=== PATIENT | male | born 1950 | race Caucasian/White ===

== ENCOUNTER 2017-05-02 17:58 | Emergency (ER) | payer MEDICARE, OTHER ==
--- NOTE | 2017-05-02 18:07 | ED Physician Chart ---
Chief Complaint/HPI - Patient Information Date Seen:: 05/02/17 Time Seen:: 18:02 Chief Complaint:: elevated blood sugar History of Present Illness:: 67-year-old male history of diabetes mellitus type 2 complaints of acute, constant, severe, elevated blood sugar that he noticed about one hour prior to arrival when he checked his blood sugar was 462. Says he had some associated generalized body cramping. Says he was working outside all day and was sweating profusely and did not drink enough water. Denies nausea, vomiting, headache, acute vision changes, numbness, tingling, abdominal pain, chest pain. Historian:: Patient Review:: Nurse's Note Reviewed Review of Systems - Review of Systems Other: Complete system review otherwise unremarkable except as noted in history of present illness. Past Medical History - Past Medical History Past Medical History: HTN, DM Family History: None Social History: Non Smoker, No Alcohol, No Drug Use Surgical History: None Psychiatricy History: None Medication: None Family Medical History - Family Member Mother History Unknown: Yes Ethnicity: Physical Exam - Physical Examination Other:: INITIAL VITAL SIGNS: Reviewed by me GENERAL: Alert and interactive. No acute distress HEAD: Head is normocephalic and atraumatic EYES: EOMI. PERRL. No scleral icterus. No conjunctival injection ENT: Moist mucous membranes. NECK: Supple. No masses. Full range of motion RESPIRATORY: No tachypnea. Clear breath sounds bilaterally. No wheezing, rales, or rhonchi CV: Regular rate and rhythm. No murmurs, rubs, or gallops ABDOMEN: Soft, non-distended, non-tender. No guarding. No rebound. No masses. EXTREMITIES: No deformity. No cyanosis. No edema. SKIN: Warm and dry. No obvious rashes. NEUROLOGIC: Alert and oriented. Face is symmetric. Speech is normal. Moves all extremities equally. Motor and sensory distally intact. Labs/Radiology/EKG Results - Lab Results Results: Lab Results 05/02/17 05/02/17 05/02/17 Range/Units 17:00 18:24 18:24 WBC 12.9 H (4.8-10.8) Th/cmm RBC 5.07 (3.80-5.80) Mil/cmm Hgb 15.3 (12.6-17.4) gm/dL Hct 45.5 (39.0-49.0) % MCV 89.8 (80-99) fl MCH 30.1 (27.0-31.0) pg MCHC Differential 33.6 (28.0-36.0) pg RDW 12.9 (11.5-20.0) % Plt Count 179 (150-400) Th/cmm MPV 10.1 fl Neutrophils (Manual) 89 H (40-80) % Lymphocytes 9 L (20-50) % Monocytes 2 (2-10) % Platelet Estimate ADEQUATE (NORMAL) Sodium 128 L (136-145) mEq/L Potassium 4.1 (3.5-5.1) mEq/L Chloride 94 L (98-107) mEq/L Carbon Dioxide 25.9 (21.0-31.0) mEq/L Anion Gap 12.2 (7.0-16.0) BUN 24 (7-25) mg/dL Creatinine 2.4 H (0.7-1.3) mg/dL Est GFR ( Amer) 34.9 (>90) ml/min Est GFR (Non-Af Amer) 28.8 ml/min BUN/Creatinine Ratio 10.0 Glucose 243 H (70-105) mg/dL Hemoglobin A1c % (4.0-6.0) % Whole Bld Lactic Acid (0.60-1.99) mmol/L Calcium 10.9 H (8.6-10.3) mg/dL Total Bilirubin 0.8 (0.3-1.0) mg/dL AST 27 (13-39) U/L ALT 21 (7-52) U/L Alkaline Phosphatase 70 (34-104) U/L Total Protein 8.2 (6.0-8.3) gm/dL Albumin 5.0 (4.2-5.5) gm/dL Globulin 3.2 gm/dL Albumin/Globulin Ratio 1.6 (1.0-1.8) Urine Source CLEAN C Urine Color DARK YELLOW Urine Clarity SLIGHT HAZY (CLEAR) Urine pH 5.0 Ur Specific [place] 1.025 (1.005-1.030) Urine Protein 100 H (NEGATIVE) mg/dL Urine Glucose (UA) NEGATIVE (NEGATIVE) mg/dL Urine Ketones 15 H (NEGATIVE) mg/dL Urine Blood NEGATIVE (NEGATIVE) Urine Nitrate NEGATIVE (NEGATIVE) Urine Bilirubin SMALL H (NEGATIVE) Urine Urobilinogen 0.2 (0.2 - 1.0) E.U./dL Ur Leukocyte Esterase TRACE H (NEGATIVE) Urine RBC 0-1 (0-5) /hpf Urine WBC 2-5 H (0-5) /hpf Ur Epithelial Cells OCCASIONAL (FEW) /lpf Amorphous Sediment FEW URATES (NONE SEEN) Urine Bacteria MANY (NONE SEEN) /hpf Hyaline Casts 2-5 H (0-2) /lpf Serum Ketones NEGATIVE (NEGATIVE) 05/02/17 05/02/17 Range/Units 18:24 18:24 WBC (4.8-10.8) Th/cmm RBC (3.80-5.80) Mil/cmm Hgb (12.6-17.4) gm/dL Hct (39.0-49.0) % MCV (80-99) fl MCH (27.0-31.0) pg MCHC Differential (28.0-36.0) pg RDW (11.5-20.0) % Plt Count (150-400) Th/cmm MPV fl Neutrophils (Manual) (40-80) % Lymphocytes (20-50) % Monocytes (2-10) % Platelet Estimate (NORMAL) Sodium (136-145) mEq/L Potassium (3.5-5.1) mEq/L Chloride (98-107) mEq/L Carbon Dioxide (21.0-31.0) mEq/L Anion Gap (7.0-16.0) BUN (7-25) mg/dL Creatinine (0.7-1.3) mg/dL Est GFR ( Amer) (>90) ml/min Est GFR (Non-Af Amer) ml/min BUN/Creatinine Ratio Glucose (70-105) mg/dL Hemoglobin A1c % 6.5 H (4.0-6.0) % Whole Bld Lactic Acid 3.51 H* (0.60-1.99) mmol/L Calcium (8.6-10.3) mg/dL Total Bilirubin (0.3-1.0) mg/dL AST (13-39) U/L ALT (7-52) U/L Alkaline Phosphatase (34-104) U/L Total Protein (6.0-8.3) gm/dL Albumin (4.2-5.5) gm/dL Globulin gm/dL Albumin/Globulin Ratio (1.0-1.8) Urine Source Urine Color Urine Clarity (CLEAR) Urine pH Ur Specific [place] (1.005-1.030) Urine Protein (NEGATIVE) mg/dL Urine Glucose (UA) (NEGATIVE) mg/dL Urine Ketones (NEGATIVE) mg/dL Urine Blood (NEGATIVE) Urine Nitrate (NEGATIVE) Urine Bilirubin (NEGATIVE) Urine Urobilinogen (0.2 - 1.0) E.U./dL Ur Leukocyte Esterase (NEGATIVE) Urine RBC (0-5) /hpf Urine WBC (0-5) /hpf Ur Epithelial Cells (FEW) /lpf Amorphous Sediment (NONE SEEN) Urine Bacteria (NONE SEEN) /hpf Hyaline Casts (0-2) /lpf Serum Ketones (NEGATIVE) ED Septic Shock - . Is Septic Shock (SBP<90, OR Lactate>4 mmol\L) present?: No Reassessment (Disposition) - Reassessment Reassessment:: Patient's blood sugar on arrival was about 260. Says he had a blood sugar reading of 460 range at home prior to arrival. Has been working outside all day long sweating. Labs indicate leukocytosis, elevated lactic acid level and acute kidney injury. There is no apparent infection. Patient feels much improved after receiving IV hydration. We did give IV normal saline 2000 mL. Recommending admission for observation and further hydration however patient says that he wishes to leave and go home tonight. He is leaving AMA. Reassessment Condition:: Improved - Diagnosis Diagnosis:: Acute leukocytosis Acute elevated lactic acid Acute kidney injury due to acute dehydration Acute hyperglycemia Acute body cramps Diabetes mellitus type 2 - Aftercare/Follow up Instructions Aftercare/Follow-Up Instructions:: Counseled pt regarding lab results/diagnosis & need follow up, Refer to Discharge Instructions - Patient Disposition Discharge/Transfer:: Home Time:: 19:48 Condition at Disposition:: Improved ED Discharge Plan - Patient Disposition Condition at Disposition: Improved Instructions: Hyperglycemia, Dehydration, Adult, [id number]
[2017-05-02] MEDS ORDERED: Sodium Chloride 0.9% 1,000 ML IV ONE ×2 (18:10→19:01)
[2017-05-02 18:31] LABS: HEMATOCRIT 45.5 % (39.0-49.0); HEMOGLOBIN 15.3 gm/dL (12.6-17.4); MEAN CELL VOLUME 89.8 fl (80-99); MEAN CORPUSCULAR HEMOGLOBIN 30.1 pg (27.0-31.0); MEAN CORPUSCULAR HGB CONC 33.6 pg (28.0-36.0); MEAN PLATELET VOLUME 10.1 fl; PLATELET COUNT 179 Th/cmm (150-400); RED BLOOD COUNT 5.07 Mil/cmm (3.80-5.80); RED CELL DISTRIBUTION WIDTH 12.9 % (11.5-20.0)
[2017-05-02 18:38] LABS: WHITE BLOOD COUNT 12.9 Th/cmm (4.8-10.8)
[2017-05-02 18:48] LABS: ALB/GLOB RATIO 1.6 (1.0-1.8); ALKALINE PHOSPHATASE 70 U/L (34-104); ANION GAP 12.2 (7.0-16.0); BILIRUBIN,TOTAL 0.8 mg/dL (0.3-1.0); BUN - UREA NITROGEN 24 mg/dL (7-25); CALCIUM SERUM 10.9 mg/dL (8.6-10.3); CARBON DIOXIDE 25.9 mEq/L (21.0-31.0); CHLORIDE 94 mEq/L (98-107); CREATININE - SERUM 2.4 mg/dL (0.7-1.3); GLUCOSE 243 mg/dL (70-105); POTASSIUM SERUM 4.1 mEq/L (3.5-5.1); SGOT 27 U/L (13-39); SGPT/ALT 21 U/L (7-52); SODIUM SERUM 128 mEq/L (136-145)
[2017-05-02 18:51] LABS: NEUTROPHILS 89 % (40-80); PLATELET ESTIMATE ADEQUATE (NORMAL); TOTAL CELLS COUNTED 100
[2017-05-02] MEDS ORDERED: cefTRIAXone 1 GM in Sodium Chloride 0.9% 50 ML IV ONE (19:01)
[2017-05-02 19:28] LABS: URINE BILIRUBIN SMALL (NEGATIVE); URINE BLOOD NEGATIVE (NEGATIVE); URINE COLOR DARK YELLOW; URINE GLUCOSE (UA) NEGATIVE (NEGATIVE); URINE KETONE 15 mg/dL (NEGATIVE); URINE PROTEIN 100 mg/dL (NEGATIVE); URINE UROBILINOGEN 0.2 E.U./dL (0.2 - 1.0)
[2017-05-02 19:29] LABS: URINE BACTERIA MANY /hpf (NONE SEEN); URINE EPITHELIAL CELLS OCCASIONAL /lpf (FEW); URINE RBC 0-1 /hpf (0-5)
[2017-05-02 19:30] LABS: URINE AMORPHOUS SEDIMENT FEW URATES (NONE SEEN)
== END 2017-05-02 20:00 | disposition left against medical advice (07) ==
LOC: ER 17:58
DX: E11.65 Type 2 diabetes mellitus with hyperglycemia (principal); D72.829 Elevated white blood cell count, unspecified; R74.0 Nonspecific elevation of levels of transaminase and lactic acid dehydrogenase [LDH]; E86.0 Dehydration; N17.9 Acute kidney failure, unspecified; R52 Pain, unspecified; I10 Essential (primary) hypertension
CPT/HCPCS: 99284; 96365; 36415; 36416; 82948; 83605; 85007; 85027; 81001; 83036; 82010; 80053; 87040 ×2; J0696; J7030; Z7502